=== PATIENT | male | born 1940 | race African-American/Black ===

== ENCOUNTER 2020-05-02 13:24 | Outpatient (CLI) | payer MEDICARE, BC | END 2020-05-02 13:25 | disposition home or self-care (01) | LOC: TBSIIMAG 13:24 | PROVIDERS: ATTEND Urology | DX: Z53.9 Procedure and treatment not carried out, unspecified reason (principal) | CPT/HCPCS: 72197; 82565 ==

== ENCOUNTER 2020-05-31 07:50 | Outpatient (CLI) | payer MEDICARE, BC ==
--- NOTE | 2020-05-31 10:04 | MRI ---
EXAM: MRI of the pelvis/prostate without and with contrast HISTORY: Prostate cancer COMPARISON: None TECHNIQUE: Multiplanar multisequence MR images were obtained of the pelvis without and with IV contra st. Evaluation of this exam was performed with a [employer] workstation. FINDINGS: Central gland: Moderate hypertrophy of the central gland consistent with BPH. The volume is estimated at 22 mL. No suspicious low T2 signal lesion is seen. Peripheral zone: Extensive high T1 signal is seen in the peripheral zone from recent biopsy. This pro duces low T2 signal appearance along the majority of the peripheral zone. No obvious restricted diffusion or low signal on the ADC map is seen in the peripheral zone. Seminal vesicles: Intact without abnormality Neurovascular bundles: Intact Pelvic lymph nodes: No pelvic adenopathy Other visualized intrapelvic structures: Unremarkable Osseous structures: No marrow signal abnormality IMPRESSION: No obvious suspicious lesions are seen within the prostate, but evaluation is limited giv en the significant blood products remaining within the prostate. A repeat prostate MRI is recommended in 6 weeks to allow time for the blood products to resolve. PI-RADS Category 2-low likelihood that a clinically significant cancer is present.
[2020-05-31] MEDS ORDERED: Magnevist 469MG/ML 20 ML VIAL ONE (15:32)
== END 2020-05-31 07:51 | disposition home or self-care (01) ==
LOC: TBSIIMAG 07:50
PROVIDERS: ATTEND Urology
DX: C61 Malignant neoplasm of prostate (principal)
CPT/HCPCS: 72197; 82565; A9579

== ENCOUNTER 2022-06-18 08:56 | Outpatient (CLI) | payer MEDICARE, BC | END 2022-06-18 08:57 | disposition home or self-care (01) | LOC: TBSIIMAG 08:56 | PROVIDERS: ATTEND Urology | DX: C61 Malignant neoplasm of prostate (principal); N42.89 Other specified disorders of prostate | CPT/HCPCS: 72197 ==

== ENCOUNTER 2022-07-25 07:39 | Outpatient (CLI) | payer MEDICARE, BC | END 2022-07-25 07:40 | disposition home or self-care (01) | LOC: CT 07:39 | PROVIDERS: ATTEND Urology | DX: C61 Malignant neoplasm of prostate (principal); N18.9 Chronic kidney disease, unspecified | CPT/HCPCS: 74176; 78306; A9503 ==

== ENCOUNTER 2022-08-09 10:11 | Outpatient (CLI) | payer MEDICARE, BC ==
[2022-08-09 11:24] LABS: Bilirubin Neg (Negative); Blood, Urine Negative (Negative); Clarity Clear (Clear); Glucose, Urine (Dipstick) Normal (Negative); Ketone, Urine Negative (Negative); Leukocyte Negative (Negative); Nitrite Negative (Negative); Protein, Urine (Dipstick) Negative (Neg-Trace); Specific Gravity, Urine 1.015 (1.005-1.030); Urobilinogen Normal mg/dL (Less than 2)
[2022-08-09 11:47] LABS: Hemoglobin 11.8 g/dL (13.5-17.5); Mean Corpuscular HGB CONC 32.9 g/dL (32.0-36.0); Mean Corpuscular Hemoglobin 29.3 pg (27.0-33.0); Mean Corpuscular Volume 89.1 fl (81.2-95.1); Mean Platelet Volume 9.6 fl (7.4-10.4); Platelet Count 178 10x3/uL (150-450); RBC Distribution Width 15.1 % (11.5-14.5); Red Blood Cell (RBC) Count 4.03 10x6/uL (4.32-5.72); White Blood Cell (WBC) Count 3.8 10x3/uL (3.5-10.5)
[2022-08-09 11:49] LABS: Anion Gap 12 mmol/L (10-20); BUN (Urea Nitrogen) 21 mg/dL (8.4-25.7); Calc. Creatinine Clearance 0 mL/min (70-130); Calcium 9.5 mg/dL (7.8-10.44); Carbon Dioxide 26 mmol/L (23-31); Chloride 108 mmol/L (98-107); Estimated GFR 60; Glucose 149 mg/dL (83-110); Potassium 4.3 mmol/L (3.5-5.1); Sodium 142 mmol/L (136-145)
[2022-08-09 11:55] LABS: Bacteria/HPF None Seen HPF (None Seen); RBC/HPF 0-3 HPF (0-3); WBC/HPF 0-3 HPF (0-3)
[2022-08-09 12:08] LABS: PTT 25.6 sec (22.0-33.0); Prothrombin Time 10.2 sec (9.5-12.1)
== END 2022-08-09 10:12 | disposition home or self-care (01) ==
LOC: LABBT 10:11
PROVIDERS: ATTEND Urology
DX: Z01.818 Encounter for other preprocedural examination (principal); C61 Malignant neoplasm of prostate; N18.9 Chronic kidney disease, unspecified; N40.1 Benign prostatic hyperplasia with lower urinary tract symptoms; R97.20 Elevated prostate specific antigen [PSA]; R33.9 Retention of urine, unspecified
CPT/HCPCS: 71046; 80048; 81001; 85027; 85610; 85730; 87086; 93005; 93010

== ENCOUNTER 2022-08-14 05:52 | Day surgery (SDC) | payer MEDICARE, BC ==
[2022-08-13 14:14] VITALS: BMI 25.1
[2022-08-14] MEDS ORDERED: Levofloxacin 500 mg/D5W 100 ml Premix Bag ONE (06:23)
[2022-08-14] MEDS ORDERED: fentaNYL Citrate/PF 100 MCG/2 ML SYRINGE ONE (07:06)
[2022-08-14] MEDS ORDERED: Ioversol 68 % 50 ML VIAL ONE (07:17)
[2022-08-14] MEDS ORDERED: PROPOFOL 200 MG/20 ML VIAL ONE (07:44)
[2022-08-14] MEDS ORDERED: Dexamethasone 20 MG/5 ML VIAL ONE (07:44)
[2022-08-14] MEDS ORDERED: Ondansetron PF 4 MG/2 ML Vial ONE (07:44)
[2022-08-14] MEDS ORDERED: Sodium Chloride 0.9% 100 ML ONE (07:44)
[2022-08-14] MEDS ORDERED: ePHEDrine 50 MG/ML VIAL ONE (07:44)
[2022-08-14] MEDS ORDERED: cefTRIAXone\\ROCEPHIN 2 GM VIAL ONE (07:44)
[2022-08-14] MEDS ORDERED: Glycopyrrolate 0.2 MG/ML 5 ML SYRINGE ONE (07:44)
[2022-08-14] MEDS ORDERED: Oxybutynin 5 MG TAB ONE (09:15)
[2022-08-14] MEDS ORDERED: Phenazopyridine HCl 100 MG TAB ONE (09:15)
== END 2022-08-14 10:57 | disposition home or self-care (01) ==
LOC: SDC 05:52
PROVIDERS: ATTEND Urology
PROC: 0TND8ZZ Release Urethra, Via Natural or Artificial Opening Endoscopic (ICD-10-PCS; principal; 2022-08-14)
PROC: 0VB03ZX Excision of Prostate, Percutaneous Approach, Diagnostic (ICD-10-PCS; 2022-08-14)
DX: N35.912 Unspecified bulbous urethral stricture, male (principal); C61 Malignant neoplasm of prostate; N40.1 Benign prostatic hyperplasia with lower urinary tract symptoms; R39.14 Feeling of incomplete bladder emptying; E78.00 Pure hypercholesterolemia, unspecified; I25.10 Atherosclerotic heart disease of native coronary artery without angina pectoris; I12.9 Hypertensive chronic kidney disease with stage 1 through stage 4 chronic kidney disease, or unspecified chronic kidney disease; N18.9 Chronic kidney disease, unspecified; Z87.891 Personal history of nicotine dependence; Z79.02 Long term (current) use of antithrombotics/antiplatelets; Z79.899 Other long term (current) drug therapy; Z95.5 Presence of coronary angioplasty implant and graft
CPT/HCPCS: 52276; 55700; 74420; C1769; G0416; J0696; J1100; J1956; J2405; J2704; J3490; Q9967

== ENCOUNTER 2022-08-20 00:11 | Emergency (ER) | payer MEDICARE, BC | END 2022-08-20 01:24 | disposition left against medical advice (07) | LOC: ERS 00:11 | DX: Z53.21 Procedure and treatment not carried out due to patient leaving prior to being seen by health care provider (principal) ==

== ENCOUNTER 2023-12-17 12:55 | Outpatient (CLI) | payer MEDICARE ==
[2023-12-17 15:56] LABS: Hematocrit 30.7 % (38.8-50.0); Hemoglobin 10.2 g/dL (13.5-17.5); Mean Corpuscular HGB CONC 33.2 g/dL (32.0-36.0); Mean Corpuscular Hemoglobin 28.8 pg (27.0-33.0); Mean Corpuscular Volume 86.7 fl (81.2-95.1); Mean Platelet Volume 9.7 fl (7.4-10.4); Platelet Count 217 10x3/uL (150-450); RBC Distribution Width 15.8 % (11.5-14.5); Red Blood Cell (RBC) Count 3.54 10x6/uL (4.32-5.72)
[2023-12-17 16:01] LABS: Prothrombin Time 10.6 sec (9.5-12.1)
[2023-12-17 16:02] LABS: Anion Gap 12 mmol/L (10-20); BUN (Urea Nitrogen) 23 mg/dL (8.4-25.7); Calc. Creatinine Clearance 0 mL/min (70-130); Calcium 9.4 mg/dL (7.8-10.44); Carbon Dioxide 26 mmol/L (23-31); Chloride 108 mmol/L (98-107); Estimated GFR 52; Glucose 121 mg/dL (83-110); Potassium 4.2 mmol/L (3.5-5.1); Sodium 142 mmol/L (136-145)
== END 2023-12-17 12:56 | disposition home or self-care (01) ==
LOC: LABBT 12:55
PROVIDERS: ATTEND Urology
DX: Z01.812 Encounter for preprocedural laboratory examination (principal); N35.919 Unspecified urethral stricture, male, unspecified site; R31.29 Other microscopic hematuria; C61 Malignant neoplasm of prostate
CPT/HCPCS: 80048; 85027; 85610; 85730; 87086

== ENCOUNTER 2023-12-22 06:35 | Day surgery (SDC) | payer MEDICARE ==
[2023-12-17 13:59] VITALS: BMI 24.4
[2023-12-22] MEDS ORDERED: PROPOFOL 20 ML ONE (07:23)
[2023-12-22] MEDS ORDERED: Lidocaine 2% PF 5 ML VIAL ONE (07:23)
[2023-12-22] MEDS ORDERED: fentaNYL PF 100 MCG/2 ML SYRINGE ONE (07:24)
[2023-12-22] MEDS ORDERED: LevoFLOXacin D5W 500 mg (100 mL) BAG ONE (07:29)
[2023-12-22] MEDS ORDERED: Phenylephrine 10 MG/ML VIAL ONE (07:54)
[2023-12-22] MEDS ORDERED: ePHEDrine Sulfate 50 MG/10 ML VIAL ONE (07:54)
[2023-12-22] MEDS ORDERED: fentaNYL 50 mcg/mL 1 mL Vial ONE ×2 (09:31→10:13)
[2023-12-22] MEDS ORDERED: HYDROcodone/Acetaminophen 5/325 mg Tablet ONE (10:31)
[2023-12-22] MEDS ORDERED: Ondansetron PF 4 MG/2 ML Vial ONE (11:15)
== END 2023-12-22 12:20 | disposition home or self-care (01) ==
LOC: SDC 06:35
PROVIDERS: ATTEND Urology
PROC: 0TBD8ZZ Excision of Urethra, Via Natural or Artificial Opening Endoscopic (ICD-10-PCS; principal; 2023-12-22)
DX: N35.011 Post-traumatic bulbous urethral stricture (principal); R31.21 Asymptomatic microscopic hematuria; I25.10 Atherosclerotic heart disease of native coronary artery without angina pectoris; I10 Essential (primary) hypertension; E78.00 Pure hypercholesterolemia, unspecified; Z79.899 Other long term (current) drug therapy
CPT/HCPCS: 52276; 87086; J3010; 87077; 87186; J1956; J2001; J2371; J2405; J2704